=== PATIENT | male | born 1990 | race Caucasian/White ===

== ENCOUNTER 2024-06-02 09:28 | Emergency (ER) | payer BC, SELFPAY ==
[2024-06-02 09:31] VITALS: BP 122/88; PULSE 82; RESP 18; TEMP 36.7; O2SAT 100
--- NOTE | 2024-06-02 10:22 | ED.EAR ---
HPI - Ear Problem General Chief complaint: Ear Stated complaint: LEFT EAR SWELLING Time Seen by Provider: 06/02/24 09:54 Source: patient Mode of arrival: ambulatory Limitations: no limitations History of Present Illness HPI Narrative: This is a 33-year-old male who presents to the ED for chief complaint left ear pain and swelling x2 days. Patient reports that today the this pain and swelling became much worse. He reports he was at a camp over the past week but not really do any swimming. Denies any drainage from the ear. Reports some facial swelling anterior to the ear but has not had any difficulty with sore throat, dysphagia. Denies fevers, chills. Denies any immuno compromising condition. Related Data Allergies Allergy/AdvReac Type Severity Reaction Status Date / Time No Known Allergies Allergy Verified 06/02/24 09:29 Review of Systems Review of Systems: All systems as dictated in HPI Exam Narrative: GENERAL: Well-appearing, well-nourished, and in no acute distress. HEAD: Normocephalic, atraumatic. EYES: PERRLA and EOMI. ENT: Right ear is grossly normal including normal canal and TM. Mild cerumen buildup left ear canal is erythematous and edematous. No purulent drainage noted. Tympanic membrane appears normal. Mild cerumen buildup. Mild left-sided facial swelling appreciated. No induration, erythema or fluctuance. No trismus. Nares clear, no rhinorrhea or epistaxis. Mucous membranes moist. Oropharynx without tonsillar hypertrophy exudate or other lesions. NECK: Supple. No adenopathy or masses. CHEST: No respiratory distress. Clear to auscultation. No wheezes rales or rhonchi HEART: Regular rate and rhythm. No murmur heard. Normal peripheral pulses. ABDOMEN: Soft, nontender, nondistended, normal active bowel sounds. MSK: Normal range of motion. No edema. SKIN: Warm, dry, no rash. NEURO: Alert and oriented x4. No focal deficits. PSYCH: Normal mood and affect. Course Vital Signs Vital signs: Vital Signs Temperature 98.0 F 06/02/24 09:31 Pulse Rate 82 06/02/24 09:31 Respiratory Rate 18 06/02/24 09:31 Blood Pressure 122/88 06/02/24 09:31 Pulse Oximetry 100 06/02/24 09:31 Oxygen Delivery Room Air 06/02/24 09:31 Temperature 98.0 F 06/02/24 09:31 Pulse Rate 84 06/02/24 10:45 Respiratory Rate 17 06/02/24 10:45 Blood Pressure 113/85 06/02/24 10:45 Pulse Oximetry 97 06/02/24 10:45 Oxygen Delivery Room Air 06/02/24 09:31 Medical Decision Making MDM Narrative Medical decision making narrative: This is a 33-year-old male who presents to the ED for chief complaint of left-sided ear pain for the past couple of days. Vitals are normal. Exam shows erythematous and swollen left ear canal. No drainage, mastoid tenderness or signs of malignant otitis externa. Presentation is consistent with uncomplicated otitis externa. No otitis media present. Patient will be prescribed Ciprodex drops. Pt will be discharged in stable condition. Return precautions given and supportive measures discussed. Pt is understanding and agreeable with plan for discharge and follow-up with PCP. Vital Signs Vital Signs: Vital Signs Temperature 98.0 F 06/02/24 09:31 Pulse Rate 82 06/02/24 09:31 Respiratory Rate 18 06/02/24 09:31 Blood Pressure 122/88 06/02/24 09:31 Pulse Oximetry 100 06/02/24 09:31 Oxygen Delivery Room Air 06/02/24 09:31 Temperature 98.0 F 06/02/24 09:31 Pulse Rate 84 06/02/24 10:45 Respiratory Rate 17 06/02/24 10:45 Blood Pressure 113/85 06/02/24 10:45 Pulse Oximetry 97 06/02/24 10:45 Oxygen Delivery Room Air 06/02/24 09:31 Discharge Plan Discharge Clinical Impression: Otitis externa Patient Disposition: Home, Self-Care Condition: Stable Instructions: Antibiotic Form, Swimmer's Ear (ED) Additional Instructions: Your exam today is consistent with otitis externa. Please take your
[2024-06-02 10:45] VITALS: BP 113/85; PULSE 84; RESP 17; O2SAT 97
== END 2024-06-02 10:47 | disposition home or self-care (01) ==
PROVIDERS: Emergency Provider Physician Assistant; PCP Internal Medicine
DX: H60.92 Unspecified otitis externa, left ear (principal)
CPT/HCPCS: 99283